=== PATIENT | female | born 1990 | race Caucasian/White ===

== ENCOUNTER 2023-01-06 11:34 | Observation (INO) | payer MEDICAID ==
[~2023-01-06] VITALS: Ht 160 cm; Wt 82.6 kg
[2023-01-06] MEDS ORDERED: PNV1TABL76 PO (12:52)
== END 2023-01-06 15:20 | disposition still patient (30) ==
LOC: 8 EST LDRP 11:34
PROVIDERS: ADMIT Obstetrics & Gynecology; ATTEND Obstetrics & Gynecology
DX: O62.9 Abnormality of forces of labor, unspecified (principal); O26.893 Other specified pregnancy related conditions, third trimester; R10.9 Unspecified abdominal pain; Z3A.38 38 weeks gestation of pregnancy
CPT/HCPCS: 59025; 76818; 76805; G0378 ×2; 99281